=== PATIENT | female | born 1930 | race Caucasian/White ===

== ENCOUNTER → 2017-07-09 | Outpatient (CLI) | payer OTHER | END | disposition home or self-care (01) | LOC: EKG 12:54 | DX: I06.1 Rheumatic aortic insufficiency (principal); I05.1 Rheumatic mitral insufficiency; I09.89 Other specified rheumatic heart diseases; I07.1 Rheumatic tricuspid insufficiency; I70.203 Unspecified atherosclerosis of native arteries of extremities, bilateral legs; I42.9 Cardiomyopathy, unspecified | CPT/HCPCS: 93306; 93925 ==

== ENCOUNTER → 2017-07-29 | Outpatient (CLI) | payer OTHER | END | disposition home or self-care (01) | LOC: EEG 09:00 | DX: R55 Syncope and collapse (principal) | CPT/HCPCS: 95819 ==